=== PATIENT | male | born 1940 | race Native Hawaiian/Other Pacific Islander ===

== ENCOUNTER 2022-07-04 08:36 | Outpatient (CLI) | payer MEDICARE, OTHER | END 2022-07-04 19:38 | disposition home or self-care (01) | LOC: RAD 08:36 | PROVIDERS: ATTEND Internal Medicine | DX: J40 Bronchitis, not specified as acute or chronic (principal); R05.3 Chronic cough ==

== ENCOUNTER 2022-07-23 14:45 | Outpatient (CLI) | payer OTHER | END 2022-07-23 20:39 | disposition home or self-care (01) | LOC: LABW 14:45 → CT 14:45 → LABW 20:39 | PROVIDERS: ATTEND Nurse Practitioner Family | DX: J44.9 Chronic obstructive pulmonary disease, unspecified (principal); R05.9 Cough, unspecified; E11.9 Type 2 diabetes mellitus without complications | CPT/HCPCS: 87070; 87205; Q9963 ==